=== PATIENT | female | born 1985 | race Caucasian/White ===

== ENCOUNTER 2016-09-25 18:55 | Emergency (ER) | payer OTHER ==
[~2016-09-25] VITALS: Ht 175.3 cm; Wt 75.2 kg
[2016-09-25 19:07] VITALS: BP 122/73; PULSE 80; RESP 18; TEMP 98.4; O2SAT 100
[2016-09-25] MEDS ORDERED: ACETAMINOPHEN 325 MG TAB PO ONE (20:00)
[2016-09-25] MEDS ORDERED: SODIUM CHLOR 0.9% 1000 ML INJ 1,000 ML IV ONE (20:00)
--- NOTE | 2016-09-25 20:03 | PD ---
HPI Chief Complaint: Abdominal Pain Time Seen by Provider: 19:52 Travel History International Travel<30 days: No Contact w/Intl Traveler<30days: No Traveled to known affect area: No History of Present Illness HPI This 31-year-old female is complaining of abdominal pain. She was okay yesterday. This morning she woke up early and had about an hour of constant vomiting. She then seemed okay. She actually moved from [place] today when she got on the pain complained she started having some fairly diffuse abdominal pain. The pain is been fairly constant. She has not had further vomiting. There has not been diarrhea. PFSH Social History Tobacco Use: No Allergies-Medications (Allergen,Severity, Reaction): Coded Allergies: No Known Allergies (Unverified , 09/25/16) Reported Meds & Prescriptions Reported Meds & Active Scripts Active Lortab (Hydrocodone-Acetaminophen) 5-325 Mg Tab 1-2 Tab PO Q6H PRN Reported Fish Oil + D3 (Fish Oil-Cholecalciferol) 1,200-1,000 Mg-Unit Cap 1 Cap PO DAILY Folic Acid 5 Mg Cap 5 Mg PO DAILY Plus Iron 29-1 mg ( Vit-Iron Carbonyl) 1 Tab Tab 1 Tab PO DAILY Review of Systems General / Constitutional: No: Fever, Chills Eyes: No: Diploplia, Blurred Vision HENT: No: Headaches, Vertigo Cardiovascular: No: Chest Pain or Discomfort, Palpitations Respiratory: No: Cough, Shortness of Breath Gastrointestinal: Positive: Nausea, Vomiting, Abdominal Pain Genitourinary: No: Urgency, Frequency Musculoskeletal: No: Myalgias Skin: No Rash Neurologic: No: Weakness Physical Exam Narrative GENERAL: Well-developed female SKIN: Focused skin assessment warm/dry. HEAD: Atraumatic. Normocephalic. EYES: Pupils equal and round. No scleral icterus. No injection or drainage. ENT: No nasal bleeding or discharge. Mucous membranes pink and moist. NECK: Trachea midline. No JVD. CARDIOVASCULAR: Regular rate and rhythm. No murmur appreciated. RESPIRATORY: No accessory muscle use. Clear to auscultation. Breath sounds equal bilaterally. GASTROINTESTINAL: Abdomen soft, non-tender, nondistended. Hepatic and splenic margins not palpable. Pelvic: There is slight discharge. There is really no pain with movement of the cervix. Uterus not enlarged. There is left adnexal fullness MUSCULOSKELETAL: No obvious deformities. No clubbing. No cyanosis. No edema. NEUROLOGICAL: Awake and alert. No obvious cranial nerve deficits. Motor grossly within normal limits. Normal speech. PSYCHIATRIC: Appropriate mood and affect; insight and judgment normal. Data Data Last Documented VS Vital Signs Date Time Temp Pulse Resp B/P Pulse Ox O2 Delivery O2 Flow Rate FiO2 09/25/16 22:56 16 09/25/16 22:15 82 143/87 97 Room Air 09/25/16 19:07 98.4 Orders Complete Blood Count With Diff (09/25/16 20:00) Comprehensive Metabolic Panel (09/25/16 20:00) Lipase (09/25/16 20:00) Sodium Chlor 0.9% 1000 Ml Inj (Ns 1000 M (09/25/16 20:00) Acetaminophen (Tylenol) (09/25/16 20:00) Urinalysis - C+S If Indicated (09/25/16 20:03) Ed Urine Pregnancytest Poc (09/25/16 20:03) Ct Abd/Pel W Iv Contrast(Rout) (09/25/16 21:03) Iohexol 350 Inj (Omnipaque 350 Inj) (09/25/16 22:14) Ondansetron Inj (Zofran Inj) (09/25/16 22:30) Morphine Inj (Morphine Inj) (09/25/16 22:30) Beta Hcg (Quant/Titer) (09/25/16 20:17) Us Pelvis Comp W Dop Transvag (09/25/16 22:14) Morphine Inj (Morphine Inj) (09/26/16 00:00) Labs Laboratory Tests Test 09/25/16 09/25/16 20:17 20:20 White Blood Count 13.4 TH/MM3 Red Blood Count 4.07 MIL/MM3 Hemoglobin 12.8 GM/DL Hematocrit 37.6 % Mean Corpuscular Volume 92.4 FL Mean Corpuscular Hemoglobin 31.4 PG Mean Corpuscular Hemoglobin 33.9 % Concent Red Cell Distribution Width 12.9 % Platelet Count 186 TH/MM3 Mean Platelet Volume 7.7 FL Neutrophils (%) (Auto) 85.7 % Lymphocytes (%) (Auto) 10.2 % Monocytes (%) (Auto) 3.3 % Eosinophils (%) (Auto) 0.6 % Basophils (%) (Auto) 0.2 % Neutrophils # (Auto) 11.6 TH/MM3 Lymphocytes # (Auto) 1.4 TH/MM3 Monocytes # (Auto) 0.4 TH/MM3 Eosinophils # (Auto) 0.1 TH/MM3 Basophils # (Auto) 0.0 TH/MM3 CBC Comment DIFF FINAL Differential Comment Sodium Level 138 MEQ/L Potassium Level 3.6 MEQ/L Chloride Level 103 MEQ/L Carbon Dioxide Level 28.1 MEQ/L Anion Gap 7 MEQ/L Blood Urea Nitrogen 10 MG/DL Creatinine 0.66 MG/DL Estimat Glomerular Filtration 104 ML/MIN Rate Random Glucose 127 MG/DL Calcium Level 8.8 MG/DL Total Bilirubin 0.9 MG/DL Aspartate Amino Transf 14 U/L (AST/SGOT) Alanine Aminotransferase 17 U/L (ALT/SGPT) Alkaline Phosphatase 48 U/L Total Protein 7.1 GM/DL Albumin 3.7 GM/DL Lipase 120 U/L Human Chorionic Gonadotropin, LESS THAN 1 Quant MIU/ML Urine Color YELLOW Urine Turbidity CLEAR Urine pH 6.0 Urine Specific [place] 1.017 Urine Protein NEG mg/dL Urine Glucose (UA) NEG mg/dL Urine Ketones TRACE mg/dL Urine Occult Blood NEG Urine Nitrite NEG Urine Bilirubin NEG Urine Leukocyte Esterase NEG Urine RBC INNUM /hpf Urine WBC 0-2 /hpf Urine Squamous Epithelial 6-8 /hpf Cells Urine Bacteria OCC /hpf Urine Mucus OCC /lpf Microscopic Urinalysis Comment CULT NOT INDICATED MDM Medical Decision Making Medical Screen Exam Complete: Yes Emergency Medical Condition: Yes Medical Record Reviewed: Yes Differential Diagnosis Differential includes gastroenteritis, appendicitis, Narrative Course White count is elevated at 13,000. A CT scan of the abdomen and pelvis was done. There is a 3.2 cm adnexal mass on the left that is not a simple cyst. Doppler ultrasound was recommended. Considerations included ovarian torsion, endometrioma and dermoid. Doppler ultrasound has been done there is a complex masslike structure in the left ovary with cystic areas and no abnormal color. This may be a complex cyst or hemorrhagic cyst. Short-term follow-up is recommended. This patient lives in [place]. She says she will see her OB doctor immediately on returning home. Diagnosis Primary Impression: Left adnexal tenderness Additional Impression: Ovarian mass, left Scripts Hydrocodone-Acetaminophen (Lortab)5-325 Mg Tab1-2 Tab PO Q6H PRN (PAIN) #30 TAB Ref 0 Prov:Andre Kee MD 09/25/16 Disposition: 01 DISCHARGE HOME Condition: Stable Andre Kee MD September 25, 2016 20:03
[2016-09-25 20:32] LABS: AUTOMATED NEUTROPHIL # 11.6 TH/MM3 (1.8-7.7); BASOPHIL % 0.2 % (0.0-2.0); EOSINOPHIL # 0.1 TH/MM3 (0-0.4); EOSINOPHIL % 0.6 % (0.0-4.0); HEMATOCRIT 37.6 % (35.0-46.0); LYMPH % 10.2 % (9.0-44.0); LYMPHOCYTE # 1.4 TH/MM3 (1.0-4.8); MEAN CELL VOLUME 92.4 FL (80.0-100.0); MEAN CORPUSCULAR HEMOGLOBIN 31.4 PG (27.0-34.0); MEAN CORPUSCULAR HGB CONC 33.9 % (32.0-36.0); MONO % 3.3 % (0.0-8.0); NEUT % 85.7 % (16.0-70.0); PLATELET COUNT 186 TH/MM3 (150-450); RED BLOOD COUNT 4.07 MIL/MM3 (4.00-5.30); RED CELL DISTRIBUTION WIDTH 12.9 % (11.6-17.2); WHITE BLOOD COUNT 13.4 TH/MM3 (4.0-11.0)
[2016-09-25 20:34] LABS: HEMO FLAGS DIFF FINAL
[2016-09-25 20:37] LABS: BLOOD, URINE NEG (NEG); GLUCOSE,URINE NEG (NEG); KETONE, URINE TRACE mg/dL (NEG); NITRITE,URINE NEG (NEG)
[2016-09-25 21:00] VITALS: BP 145/75; PULSE 83; RESP 17; O2SAT 98
[2016-09-25 21:08] LABS: URINE COLOR YELLOW (YELLW/STRAW)
[2016-09-25 21:09] LABS: BACTERIA, URINE OCC /hpf; RBC, URINE INNUM /hpf (0-3)
[2016-09-25 21:10] LABS: MUCUS URINE OCC /lpf (OCC); WBC, URINE 0-2 /hpf (0-5)
[2016-09-25 21:13] LABS: COMMENT (UR) CULT NOT INDICATED; CULTURE IF INDICATED CULT NOT INDICATED
[2016-09-25 21:29] LABS: CHLORIDE 103 MEQ/L (98-107); POTASSIUM 3.6 MEQ/L (3.5-5.1); SODIUM (NA) 138 MEQ/L (136-145)
[2016-09-25 21:33] LABS: ANION GAP 7 MEQ/L (5-15); BICARBONATE 28.1 MEQ/L (21.0-32.0)
[2016-09-25 21:34] LABS: BLOOD UREA NITROGEN 10 MG/DL (7-18)
[2016-09-25 21:36] LABS: ALT (GPT) 17 U/L (10-53); AST (GOT) 14 U/L (15-37)
[2016-09-25 21:37] LABS: GLOMERULAR FILTRATION RATE 104 ML/MIN (>89)
[2016-09-25 21:38] LABS: TOTAL BILIRUBIN ADULT 0.9 MG/DL (0.2-1.0)
[2016-09-25 21:39] LABS: ALKALINE PHOSPHATASE 48 U/L (45-117)
[2016-09-25] MEDS ORDERED: PREN29TA PO (22:08)
[2016-09-25] MEDS ORDERED: FOLI5CAP PO (22:08)
[2016-09-25] MEDS ORDERED: FISHCAP4 PO (22:09)
[2016-09-25] MEDS ORDERED: IOHEXOL 350 MG/ML 10 ML VIAL (for RAD DIAG) IV ONE (22:14)
[2016-09-25 22:15] VITALS: BP 143/87; PULSE 82; RESP 17; O2SAT 97
--- NOTE | 2016-09-25 22:17 | RADHPO ---
EXAM DATE/TIME: 09/25/2016 21:41 [facility] COMPARISON: No previous studies available for comparison. INDICATIONS : Abdominal pain. Vomiting. IV CONTRAST: 100 cc Omnipaque 350 (iohexol) IV ORAL CONTRAST: No oral contrast ingested. RADIATION DOSE: 9.96 CTDIvol (mGy) MEDICAL HISTORY : None SURGICAL HISTORY : None. ENCOUNTER: Initial ACUITY: 1 day PAIN SCALE: 6/10 LOCATION: Bilateral lower quadrant upper quadrant TECHNIQUE: Volumetric scanning of the abdomen and pelvis was performed. Using automated exposure control and ad justment of the mA and/or kV according to patient size, radiation dose was kept as low as reasonably achievable to obtain optimal diagnostic quality images. FINDINGS: LOWER LUNGS: The visualized lower lungs are clear. GE junctional is unremarkable LIVER: The liver is free of focal defects. SPLEEN: Normal size without lesion. PANCREAS: Within normal limits. ADRENAL GLANDS: Within normal limits. KIDNEYS: Normal in size and shape. There is no mass, stone, or hydronephrosis. CECUM : The region of the cecum and terminal ileum appear normal. RETROPERITONEAL: There is no adenopathy PELVIS: Trace free fluid is present in the pelvis. There is 3.2 cm adnexal mass on the left ABDOMINAL WALL: Intact without hernia BONE WINDOWS: The portion of the bony skeleton visualized is unremarkable. CONCLUSION: 3.2 cm adnexal mass on the left that is not a cyst.. Trace free fluid in the pelvis. Doppler ultrasound may be of benefit. Considerations include ovarian portion, endometrioma and muc h less likely dermoid. Rudolph Lopez MD FACR on September 25, 2016 at 22:06 Board Certified Radiologist. This report was verified electronically.
[2016-09-25] MEDS ORDERED: ONDANSETRON HCL 4 MG/2 ML VIAL IV PUSH ONE (22:30)
[2016-09-25] MEDS ORDERED: MORPHINE SULFATE 4 MG/ML INJ IV PUSH ONE (22:30)
[2016-09-25 22:53] LABS: BETA HCG QUANT LESS THAN 1 MIU/ML (0-5)
[2016-09-25 23:40] VITALS: BP 145/75; PULSE 75; RESP 17; O2SAT 98
[2016-09-25] MEDS ORDERED: HYDR-3533 PO (23:54)
[2016-09-26] MEDS ORDERED: MORPHINE SULFATE 4 MG/ML INJ IV PUSH ONE
--- NOTE | 2016-09-26 00:03 | RADHPO ---
EXAM DATE/TIME: 09/25/2016 23:14 [facility] COMPARISON: CT ABDOMEN & PELVIS W CONTRAST, September 25, 2016, 21:41. INDICATIONS : Pelvic pain. Left adnexal mass seen on CT. MEDICAL HISTORY : Ovarian cysts. Abdominal pain. SURGICAL HISTORY : Tonsillectomy. ENCOUNTER: Initial ACUITY: 1 day PAIN SCORE: 5/10 LOCATION: Bilateral pelvis MEASUREMENTS: UTERUS: 8.8 x 6.3 x 4.2 cm ENDOMETRIAL STRIPE: 5 mm RIGHT OVARY: 4.2 x 2.9 x 2.4 cm LEFT OVARY: 4.8 x 3.9 x 4.1 cm FINDINGS: UTERUS: The myometrium has homogeneous echotexture without mass. There are small nabothian cysts. RIGHT OVARY: Ovary contains no mass or significant cystic lesion. LEFT OVARY: The left ovary prominent than the right and contains a complex masslike structure measuring 3.5 x 3 x 3.2 cm it has cystic areas and no abnormal color flow. MISCELLANEOUS: Trace fluid is present in the cul-de-sac. CONCLUSION: 1. Complex masslike structure in the left ovary with cystic areas and no abnormal color flow. This ma y represent a complex cyst or hemorrhagic cyst. Short-term ultrasound followup is recommended in 1-2 cycles. 2. Trace fluid in the cul-de-sac. 3. Small nabothian cysts. Jef Cannon MD on September 25, 2016 at 23:57 Board Certified Radiologist. This report was verified electronically.
[2016-09-26 00:14] VITALS: RESP 17
[2016-09-26 00:29] VITALS: BP 139/86
== END 2016-09-26 00:31 | disposition home or self-care (01) ==
LOC: PHED 18:55
DX: R10.814 Left lower quadrant abdominal tenderness (principal); R19.09 Other intra-abdominal and pelvic swelling, mass and lump; D72.829 Elevated white blood cell count, unspecified; R11.10 Vomiting, unspecified
CPT/HCPCS: 74177; 76830; 76856; 80053; 81001; 83690; 84702; 84703; 85025; 93975; 96361; 96374; 96375; 96376; 99284; J2270; J2405; J7030; Q9967